=== PATIENT | male | born 1935 | race Caucasian/White ===

== ENCOUNTER 2020-11-06 12:50 | Emergency (ER) | payer OTHER ==
--- OUTSIDE RECORDS SUMMARY | 2020-11-06 12:55 | XMS REPORT | Continuity of Care Document ---
:1935 Author Organization [facility] t Address [address] [place] [address] Care Team Providers Name Role Phone Doctor Unassigned, [place] Attending Clinician Unavailable Mario MILLER, S Attending Clinician Pipe STYLES, S Attending Clinician Anthony RITTER Attending Clinician Unavailable Mati Quintero Attending Clinician Jesús STYLES Attending Clinician Aaron STYLES Attending Clinician Rangel Pendleton Attending Clinician Julita RN, A Attending Clinician Unavailable Kristin Pat Attending Clinician Isidro STYLES Attending Clinician Robert STYLES Attending Clinician Marlena MILLER S Attending Clinician Aaron STYLES Admitting Clinician Isidro STYLES Admitting Clinician Payers Payer Name Policy Type Policy Number Effective Date Expiration Date S ource Problems Condition Condition Condition Status Onset Resolution Last Treating Co mments Source Name Details Category Date Date Treatment Clinician Date 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 Cardiac Aime n (finding) pacemaker in situ (finding) Active Problem 06/01/2020 [facility] Hypertensi Problem Active 2020-06-01 M emoria ve 22:42:31 l disorder, Rajinder systemic Hypertensi arterial ve (disorder) disorder, systemic arterial (disorder) Active Problem 06/01/2020 [facility] Hyperlipid Problem Active 2020-06-01 M emoria emia 22:42:31 l (disorder) Aime n Hyperlipid emia (disorder) Active Problem 06/01/2020 [facility] Impaired Problem Active 2020-06-01 Mem oria cognition 22:42:31 l (finding) Impaired Her desai cognition (finding) Active Problem 06/01/2020 [facility] Simple Problem Active 2020-06-01 Memor ia obesity 22:42:31 l (disorder) Simple Herm susan obesity (disorder) Active Problem 06/01/2020 [facility] Allergies, Adverse Reactions, Alerts Allergy Allergy Status Severity Reaction(s) Onset Inactive Treating Comm ents Source Name Type Date Date Clinician No Known DA Active [facility] Allergie 2-17 Clear s 00:00: Rosario 00 [facility] Social History Social Habit Start Date Stop Date Quantity Comments Source Social History 2020-02-16 2020-02-16 [facility] 19:50:56 19:50:56 Medications Ordered Filled Start Stop Current Ordering Indication Dosage Frequency Signature Comments Components Source Medication Medication Date Date Medication? 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, Weight 24 HR Yes 500 mg = 1 Memori a Divalproex 9-25 tab, PO, l Sodium 500 19:26: Bedtime, 0 H ermann MG Extended 00 Refill(s) Release Tablet simvastatin 0 Yes 40 mg = 1 M emoria 40 mg oral 9-25 tab, PO, l tablet 19:26: Bedtime, 0 Dena nn 00 Refill(s) Furosemide Yes 20 mg = 1 Me moria 20 MG Oral 9-25 tab, PO, l Tablet 19:26: Daily, 0 Rajinder 00 Refill(s) lisinopril Yes 10 mg = 1 Me moria 10 mg oral 9-25 tab, PO, l tablet 19:26: Daily, 0 Rajinder 00 Refill(s) tamsulosin Yes 0.4 mg = 1 M emoria 0.4 mg oral 9-25 cap, PO, l capsule 19:26: Daily, 0 Aime n 00 Refill(s) DULoxetine Yes 60 mg = 1 Me moria 60 mg oral 9-25 cap, PO, l delayed 19:26: Daily, 0 Aime n release 00 Refill(s) capsule Vital Signs Vital Name Observation Time Observation Value Comments Source Systolic (mm Hg) 2020-03-28 19:56:00 Marcin rial [place] Diastolic (mm Hg) 2020-03-28 19:56:00 [facility] [place] Heart Rate 2020-03-28 19:56:00 [facility] 2020-03-28 19:56:00 [facility] Rajinder Height 2020-03-28 19:56:00 170.18 cm [facility] Weight 2020-03-28 19:56:00 [facility] BMI Calculated 2020-03-28 19:56:00 Memori al Rajinder Systolic (mm Hg) 2020-02-16 19:06:00 Marcin rial [place] Diastolic (mm Hg) 2020-02-16 19:06:00 [facility] [place] Heart Rate 2020-02-16 19:06:00 [facility] Rate 2020-02-16 19:06:00 [facility] Rajinder Height 2020-02-16 19:06:00 172.72 cm [facility] Weight 2020-02-16 19:06:00 [facility] BMI Calculated 2020-02-16 19:06:00 [place] Procedures Procedure Date / Time Performed Performing Clinician [facility] e Pacemaker care [facility] Encounters Start End Encounter Admission Attending Care Care Encounter Source Date/Time Date/Time Type Type Clinicians Facility Department ID 2020-10-15 2020-10-15 Orders Doctor CALEB [id number] [id number] 00:00:00 00:00:00 Only Unassigned, SOCO 350.1.13.10 [place] [facility] 4.2.7.2.686 [id number] 2020-10-01 2020-10-01 Emergency Martin, [facility] [id number] 13:31:00 15:55:00 Mouna Rodas 350.1.13.10 [place] 4.2.7.2.686 [place] [id number] 2020-09-30 2020-09-30 Emergency [facility], [facility] [id number] 20:51:00 23:20:00 Vidal Rodas 350.1.13.10 [place] 4.2.7.2.686 [place] [id number] 2020-09-30 2020-09-30 Orders Doctor CALEB 1.2.840.114 [id number] 00:00:00 00:00:00 Only Unassigned, SOCO 350.1.13.10 [place] [facility] 4.2.7.2.686 [id number] 2020-08-15 2020-08-15 Transition Romulo Cruz 1.2.840.114 [id number] 00:00:00 00:00:00 of Care Vicenta Doyle 350.1.13.10 [place] 4.2.7.2.686 [id number] 2020-08-12 2020-08-14 [facility] Siddiqui [facility] 1.2.8 40.114 [id number] 16:32:00 17:15:00 Encounter Billy Espinosa 350.1.13.10 Ernie Walker [place] 4.2.7.2.686 [place] [id number] 082020-07-26 2020-07-26 Emergency Martin, [facility] 1.2.699.535 [id number] 16:25:00 21:46:00 Mouna Jc Adrianna 350.1.13.10 [place] 4.2.7.2.686 [place] [id number] 2020-06-30 2020-07-01 Emergency [facility], [facility] [id number] 19:32:00 00:53:00 Vidal Jc Adrianna 350.1.13.10 [place] 4.2.7.2.686 [place] [id number] 2020-05-30 2020-05-30 Outpatient SEVERO Pendleton [id number] 13:00:00 13:00:00 Obdulio 02 Rangel 2020-05-28 2020-05-28 Transition Romulo Cancino 1.2.840.114 [id number] 00:00:00 00:00:00 of Care Brien Kwon 350.1.13.10 [place] 4.2.7.2.68[facility] [id number] 2020-05-24 2020-05-25 Emergency Fatou Alma Foster [facility] 1.2.840. 114 [id number] 14:43:00 15:00:00 Balbina Felix 350.1.13.10 [place] 4.2.7.2.686 [place] [id number] 2020-03-28 2020-03-28 Outpatient SEVERO Pendleton [id number] 13:15:00 23:59:59 Obdulio Rangel 2020-02-24 2020-02-24 [email or web address] 1.2.629.820 [id number] 13:34:00 15:14:00 Dawson Rodas 350.1.13.10 [place] 4.2.7.2.686 [place] [id number] [facility] 2020-02-16 2020-02-16 Outpatient SEVERO Pendleton [id number] 14:00:00 23:59:59 Obdulio 00 Rangel 2019-08-15 2019-08-15 Orders Doctor CALEB 1.2.840.114 [id number] 00:00:00 00:00:00 Only Unassigned, SOCO 350.1.13.10 [place] [facility] 4.2.7.2.686 [id number] 2019-07-06 2019-07-06 Office CRISTINA Mendiola 1.2.840.114 [id number] 10:04:57 10:19:57 Visit [facility] 350.1.13.10 Surgical 4.2.7.2.686 Specialti [id number] [place] Results Test Description Test Time Test Comments Results Result Comments Source BASIC METABOLIC PANEL 2020-07-14 06:29:00 Test Item Value Reference Range Interpretation Comme nts SODIUM (test code = NA) 141 mmol/L 134-147 N POTASSIUM (test code = K) 3.8 mmol/L 3.4-5.0 N CHLORIDE (test code = CL) 107 mmol/L 100-108 N CARBON DIOXIDE (test code = CO2) 29 mmol/L 21-32 N ANION GAP (test code = GAP) 5.0 GAP calc 4.0-15.0 N GLUCOSE (test code = GLU) 81 MG/DL 70-110 N BLOOD UREA NITROGEN (test code = BUN) 25 MG/DL 7-18 H GLOMERULAR FILTRATION RATE (test code = GFR) >=60 max estimate estG FR >60 CREATININE (test code = CREAT) 0.8 MG/DL 0.8-1.3 N CALCIUM (test code = CA) 8.4 MG/DL 8.5-10.1 L CBC W/AUTO [id number] 06:19:00 Test Item Value Reference Range Interpretation Comments WHITE BLOOD CELL (test code = 6.9 K/mm3 3.5-11.0 N WBC) RED BLOOD CELL (test code = 3.15 M/mm3 4.70-6.10 L RBC) HEMOGLOBIN (test code = HGB) 9.8 G/DL 12.3-15.9 L HEMATOCRIT (test code = HCT) 29.8 % 35.8-46.7 L MEAN CELL VOLUME (test code = 94.6 Fl 86.3-98.9 N MCV) MEAN CELL HGB (test code = MCH) 31.1 pg 28.9-34.4 N MEAN CELL HGB CONCETRATION 32.9 G/DL 32.1-34.5 N (test code = MCHC) RED CELL DISTRIBUTION WIDTH 14.1 SD 11.5-14.5 N (test code = RDW) PLATELET COUNT (test code = 220 K/mm3 150-450 N PLT) MEAN PLATELET VOLUME (test code 11.40 fL 7.0-9.6 H = MPV) NEUTROPHIL % (test code = NT%) 44.9 % 40-76 N IMMATURE GRANULOCYTE % (test 1.6 % 0.0-5.0 N code = IG%) LYMPHOCYTE % (test code = LY%) 38.8 % 20.5-51.1 N MONOCYTE % (test code = MO%) 11.9 % 1.7-9.3 H EOSINOPHIL % (test code = EO%) 2.2 % 0.0-6.0 N BASOPHIL % (test code = BA%) 0.6 % 0.0-2.0 N NUCLEATED RBC % (test code = 0.0 /100WBC% 0.0-1.0 N NRBC%) NEUTROPHIL # (test code = NT#) 3.1 K/mm3 1.8-7.6 N IMMATURE GRANULOCYTE # (test 0.11 x10 3/uL 0.00-0.03 H code = IG#) LYMPHOCYTE # (test code = LY#) 2.7 K/mm3 0.6-3.0 N MONOCYTE # (test code = MO#) 0.8 K/mm3 0.2-1.5 N EOSINOPHIL # (test code = EO#) 0.2 K/mm3 0.0-0.4 N BASOPHIL # (test code = BA#) 0.0 K/mm3 0.0-0.2 N NUCLEATED RBC # (test code = 0.0 K/mm3 0.00-0.01 N NRBC#) MANUAL DIFF REQUIRED (test code NO DIFF/SCN CRITERIA = MDIFF) BASIC METABOLIC [id number] 06:12:00 Test Item Value Reference Range Interpretation Comments SODIUM (test code = NA) 140 mmol/L 134-147 N POTASSIUM (test code = 3.5 mmol/L 3.4-5.0 N K) CHLORIDE (test code = 107 mmol/L 100-108 N CL) CARBON DIOXIDE (test 27 mmol/L 21-32 N code = CO2) ANION GAP (test code = 6.0 GAP calc 4.0-15.0 N GAP) GLUCOSE (test code = 79 MG/DL 70-110 N GLU) BLOOD UREA NITROGEN 30 MG/DL 7-18 H (test code = BUN) GLOMERULAR FILTRATION >=60 max estimate >60 RATE (test code = GFR) estGFR CREATININE (test code = 0.9 MG/DL 0.8-1.3 N CREAT) CALCIUM (test code = CA) 8.5 MG/DL 8.5-10.1 N CBC W/AUTO [id number] 05:58:00 Test Item Value Reference Range Interpretation Comments WHITE BLOOD CELL (test code = 8.3 K/mm3 3.5-11.0 N WBC) RED BLOOD CELL (test code = 3.05 M/mm3 4.70-6.10 L RBC) HEMOGLOBIN (test code = HGB) 9.4 G/DL 12.3-15.9 L HEMATOCRIT (test code = HCT) 28.9 % 35.8-46.7 L MEAN CELL VOLUME (test code = 94.8 Fl 86.3-98.9 N MCV) MEAN CELL HGB (test code = MCH) 30.8 pg 28.9-34.4 N MEAN CELL HGB CONCETRATION 32.5 G/DL 32.1-34.5 N (test code = MCHC) RED CELL DISTRIBUTION WIDTH 14.2 SD 11.5-14.5 N (test code = RDW) PLATELET COUNT (test code = 210 K/mm3 150-450 N PLT) MEAN PLATELET VOLUME (test code 11.40 fL 7.0-9.6 H = MPV) NEUTROPHIL % (test code = NT%) 46.7 % 40-76 IMMATURE GRANULOCYTE % (test 1.7 % 0.0-5.0 N code = IG%) LYMPHOCYTE % (test code = LY%) 36.3 % 20.5-51.1 N MONOCYTE % (test code = MO%) 12.8 % 1.7-9.3 H EOSINOPHIL % (test code = EO%) 1.8 % 0.0-6.0 N BASOPHIL % (test code = BA%) 0.7 % 0.0-2.0 N NUCLEATED RBC % (test code = 0.0 /100WBC% 0.0-1.0 N NRBC%) NEUTROPHIL # (test code = NT#) 3.9 K/mm3 1.8-7.6 N IMMATURE GRANULOCYTE # (test 0.14 x10 3/uL 0.00-0.03 H code = IG#) LYMPHOCYTE # (test code = LY#) 3.0 K/mm3 0.6-3.0 N MONOCYTE # (test code = MO#) 1.1 K/mm3 0.2-1.5 N EOSINOPHIL # (test code = EO#) 0.2 K/mm3 0.0-0.4 N BASOPHIL # (test code = BA#) 0.1 K/mm3 0.0-0.2 N NUCLEATED RBC # (test code = 0.0 K/mm3 0.00-0.01 N NRBC#) MANUAL DIFF REQUIRED (test code NO DIFF/SCN CRITERIA = MDIFF) ARTERIAL BLOOD [id number] 17:25:00 Test Item Value Reference Range Interpretation Comments ARTERIAL BLOOD GAS PH 7.42 pH units 7.35-7.45 N (test code = PHA) ARTERIAL BLOOD GAS PCO2 37 mmHg 35-45 N (test code = PCO2A) ARTERIAL BLOOD GAS PO2 73 mmHg 80-100 L (test code = PO2A) BICARBONATE TOTAL HCO3 23.7 mmol/L 22.0-26.0 N (test code = HCO3) BASE EXCESS (test code = -0.5 mmol/L -3.0-3.0 N ARNULFO) ABG O2 SATURATION (test 95 % 90-100 N code = SATA) FIO2 (test code = FIO2A) 21 % (calc) 21-100 N ABG VENT MODE (test code Room Air Descript Vent Mode = MODEA) ABG SITE (test code = Right Radial ARTKIT DESCRIPTION SITEA) MODIFIED RADHA'S (test Yes Circ.CHK POSITIVE code = MODALL) PaO2/[id number] 17:25:00 Test Item Value Reference Range Interpretation Comments PaO2/FiO2 (test code mm/Hg See_Comment [Autom ated message] The = [id number]) system which ge nerated this result transmit lora reference range : 200. The reference range was not used to interpr et this result as dat l/abnormal. ARTERIAL BLOOD [id number] 17:25:00 Test Item Value Reference Range Interpretation Comments ARTERIAL BLOOD GAS PH 7.42 pH units 7.35-7.45 N (test code = PHA) ARTERIAL BLOOD GAS PCO2 37 mmHg 35-45 N (test code = PCO2A) ARTERIAL BLOOD GAS PO2 73 mmHg 80-100 L (test code = PO2A) BICARBONATE TOTAL HCO3 23.7 mmol/L 22.0-26.0 N (test code = HCO3) BASE EXCESS (test code = -0.5 mmol/L -3.0-3.0 N ARNULFO) ABG O2 SATURATION (test 95 % 90-100 N code = SATA) FIO2 (test code = FIO2A) 21 % (calc) 21-100 N ABG VENT MODE (test code Room Air Descript Vent Mode = MODEA) ABG SITE (test code = Right Radial ARTKIT DESCRIPTION SITEA) MODIFIED RADHA'S (test Yes Circ.CHK POSITIVE code = MODALL) PaO2/[id number] 17:25:00 Test Item Value Reference Range Interpretation Comments PaO2/FiO2 (test 347.6 mm/Hg See_Comment [Automated message] The code = [id number]) system [employer] generated this result tra nsmitted reference range : 200. The reference r mario was not used to int erpret this result as normal/abnormal . VALPROIC ACID (DEPAKENE)2020-07-11 16:21:00 Test Item Value Reference Range Interpretation Comments VALPROIC ACID (DEPAKENE) (test 45.0 mcG/ML 50.0-100.0 L code = VALP) CBC W/AUTO [id number] 06:37:00 Test Item Value Reference Range Interpretation Comments WHITE BLOOD CELL (test code = 8.2 K/mm3 3.5-11.0 N WBC) RED BLOOD CELL (test code = 3.11 M/mm3 4.70-6.10 L RBC) HEMOGLOBIN (test code = HGB) 9.7 G/DL 12.3-15.9 L HEMATOCRIT (test code = HCT) 29.7 % 35.8-46.7 L MEAN CELL VOLUME (test code = 95.5 Fl 86.3-98.9 N MCV) MEAN CELL HGB (test code = MCH) 31.2 pg 28.9-34.4 N MEAN CELL HGB CONCETRATION 32.7 G/DL 32.1-34.5 N (test code = MCHC) RED CELL DISTRIBUTION WIDTH 14.2 SD 11.5-14.5 N (test code = RDW) PLATELET COUNT (test code = 185 K/mm3 150-450 N PLT) MEAN PLATELET VOLUME (test code 11.60 fL 7.0-9.6 H = MPV) NEUTROPHIL % (test code = NT%) 59.2 % 40-76 N IMMATURE GRANULOCYTE % (test 1.8 % 0.0-5.0 N code = IG%) LYMPHOCYTE % (test code = LY%) 23.2 % 20.5-51.1 N MONOCYTE % (test code = MO%) 13.7 % 1.7-9.3 H EOSINOPHIL % (test code = EO%) 1.5 % 0.0-6.0 N BASOPHIL % (test code = BA%) 0.6 % 0.0-2.0 N NUCLEATED RBC % (test code = 0.0 /100WBC% 0.0-1.0 N NRBC%) NEUTROPHIL # (test code = NT#) 4.8 K/mm3 1.8-7.6 N IMMATURE GRANULOCYTE # (test 0.15 x10 3/uL 0.00-0.03 H code = IG#) LYMPHOCYTE # (test code = LY#) 1.9 K/mm3 0.6-3.0 N MONOCYTE # (test code = MO#) 1.1 K/mm3 0.2-1.5 N EOSINOPHIL # (test code = EO#) 0.1 K/mm3 0.0-0.4 N BASOPHIL # (test code = BA#) 0.1 K/mm3 0.0-0.2 N NUCLEATED RBC # (test code = 0.0 K/mm3 0.00-0.01 N NRBC#) MANUAL DIFF REQUIRED (test code NO DIFF/SCN CRITERIA = MDIFF) LACTIC [id number] 17:25:00 Test Item Value Reference Range Interpretation Comments LACTIC ACID (test code = LACT) 1.1 mmol/L 0.4-2.0 N COVID 19 INHOUSE [id number] 17:20:00 Test Item Value Reference Range Interpretation Comments COVID 19 INHOUSE AG NEGATIVE Negative Per manu facturer, (test code = negative result s should [id number]) be treated aspr esumptive and, if inconsi stent with clinical signs andsymptoms or necessary for patient man agement, should betested with an alternative mol ecular assay. Negative resultsdo not preclude SA RS-CoV-2 infection and s hould not be usedas the s ole basis for patient man agement decisions. Neg ative results should be considered in t he context of apatient's r ecent exposures, hist ory, presence of cli nicalsigns and symptoms co nsistent with COVID-19. - CT HEAD/BRAIN W/O [id number] 16:12:00 [facility] 1935 Sex: M Name: SHRUTHI MERINO [facility] : 1935 Age/S: 84 / M [id number] Unit #: [id number] Loc: [place] [address] Phys: Chadd Mendoza MD Acct: [id number] Dis Date: Status: REG ER PHONE #: [phone] Exam Date: 07/10/2020 9235 FAX #: Reason: ams EXAMS: CPT: [id number] CT HEAD/BRAIN W/O CONT 20188 Location: R16 EXAM: CT BRAIN WITHOUT CONTRAST INDICATION: Altered mental status COMPARISON: None. TECHNIQUE: Routine axial CT images of the brain were obtained. Reformatted images in the sagittal and coronal plane were included. This exam was performed according to our departmental dose-optimization program, which includes automated exposure control, adjustment of the mA and/or kV according to patient size and/or use of iterative reconstruction technique IV contrast: None. DLP: 804 mGy-cm FINDINGS: Non-contrast images of the head demonstrate no edema, hemorrhage, mass lesion or other acute intracranial abnormality. There is mild, chronic diffuse parenchymal volume loss, which may be age-appropriate. There are periventricular and deep white matter hypodensities. These are nonspecific, but statistically, these aremost likely service representative of sequelae of chronic microvascular disease. No acute bony abnormality of the calvarium or skull base. Imaged portions of the paranasal sinuses and mastoid air cells are clear. IMPRESSION: No CT evidence of acute intracranial abnormality. If there is clinical concern for acute symptomatology, consider further evaluation with an MRI examination of the brain. Chronic findings, including mild diffuse parenchymal volume loss and sequelae of chronic microvascular disease. PAGE 1 Signed Report (CONTINUED) Name: SHRUTHI MERINO [facility] Michael : 1935 Age/S: 84 / M [id number] Unit #: [id number] Loc: [place] [address] Phys: Chadd Mendoza MD Acct: [id number] Dis Date: Status: REG ER PHONE #: [phone] Exam Date: 07/10/2020 8790 FAX #: Reason: ams EXAMS: CPT: [id number] CT HEAD/BRAIN W/O CONT [id number] <Continued> El ectronically Signed by Gt Burr on 07/10/2020 at 1612 Reported and signed by: Juan Burr M.D. CC: Chadd Mendoza MD Technologist:RT Sarah(R)(CT); Lu Barroso CTDI: DLP: Trnscb Date/Time: 07/10/2020 (1611) [email or web address] Orig Print D/T: S: 07/10/2020 (1616) PAGE 2 Signed ReportCBC W/AUTO [id number] 16:06:00 Test Item Value Reference Range Interpretation Comments WHITE BLOOD CELL 12.6 K/mm3 3.5-11.0 H (test code = WBC) RED BLOOD CELL (test 3.55 M/mm3 4.70-6.10 L code = RBC) HEMOGLOBIN (test code 10.9 G/DL 12.3-15.9 L = HGB) HEMATOCRIT (test code 33.5 % 35.8-46.7 L = HCT) MEAN CELL VOLUME 94.4 Fl 86.3-98.9 N (test code = MCV) MEAN CELL HGB (test 30.7 pg 28.9-34.4 N code = MCH) MEAN CELL HGB 32.5 G/DL 32.1-34.5 N CONCETRATION (test code = MCHC) RED CELL DISTRIBUTION 14.2 SD 11.5-14.5 N WIDTH (test code = RDW) PLATELET COUNT (test 250 K/mm3 150-450 N code = PLT) MEAN PLATELET VOLUME 11.50 fL 7.0-9.6 H (test code = MPV) NEUTROPHIL % (test 62.1 % 40-76 N code = NT%) IMMATURE GRANULOCYTE 3.0 % 0.0-5.0 N % (test code = IG%) LYMPHOCYTE % (test 20.6 % 20.5-51.1 N code = LY%) MONOCYTE % (test code 13.5 % 1.7-9.3 H = MO%) EOSINOPHIL % (test 0.2 % 0.0-6.0 N code = EO%) BASOPHIL % (test code 0.6 % 0.0-2.0 N = BA%) NUCLEATED RBC % (test 0.0 /100WBC% 0.0-1.0 N code = NRBC%) NEUTROPHIL # (test 7.8 K/mm3 1.8-7.6 H code = NT#) IMMATURE GRANULOCYTE 0.38 x10 3/uL 0.00-0.03 H # (test code = IG#) LYMPHOCYTE # (test 2.6 K/mm3 0.6-3.0 N code = LY#) MONOCYTE # (test code 1.7 K/mm3 0.2-1.5 H = MO#) EOSINOPHIL # (test 0.0 K/mm3 0.0-0.4 N code = EO#) BASOPHIL # (test code 0.1 K/mm3 0.0-0.2 N = BA#) NUCLEATED RBC # (test 0.0 K/mm3 0.00-0.01 N code = NRBC#) MANUAL DIFF REQUIRED NO DIFF/SCN CRITERIA SLIDE R GRAYW (test code = MDIFF) CONSISTA NT WITH AUTO DIFFERENTI AL. - XR CHEST 1 [id number] 15:38:00 [facility] 1935 Sex: M Name: SHRUTHI MERINO [facility] : 1935 Age/S: 84 / M [address] Unit #: [id number] Loc: [place] [address] Phys: Chadd Mendoza MD Acct: [id number] Dis Date: Status: REG ER PHONE #: [phone] Exam Date: 07/10/20201522 FAX #: Reason: Code Sepsis EXAMS: CPT: [id number] XR CHEST 1 V 56266 Fluoro Time: DAP (Gy m2): Air Kerma (mGy): - XR CHEST 1 V INDICATION:Code sepsis LOCATION: T18 The lungs are clear. The cardiomediastinal silhouette is within normal limits. There are pacemaker leads right atrium and right ventricle. Old left rib fracture. IMPRESSION: No active disease. at 1538 Reported and signed by: Caleb Bennett M.D. CC: Chadd Mendoza MD PAGE 1 Signed Report [facility] 1935 Age/S: 84 / M [address] Unit #: [id number] Loc: [place] [address] Phys: Chadd Mendoza MD Acct: [id number] Dis Date: Status: REG ER PHONE #: [phone] Exam Date: 07/10/20201522 FAX #: Reason: Code Sepsis EXAMS: CPT: [id number] XR CHEST 1 V [id number] Fluoro Time: DAP (Gy m2): Air Kerma (mGy): <Continued> Technologist: RT Kerline(R)(CT) Trnscb Date/Time: 07/10/2020 (1538) Demar Orig Print D/T: S: 07/10/2020 (2339) PAGE 2 Signed ReportUA RFLX MICR CULT IF INDICATED 2020-07-10 15:07:00 Test Item Value Reference Range Interpretation Comments UA COLOR (test code = YELLOW discript YEL/STRAW COLU) UA APPEARANCE (test code CLEAR discript CLEAR = APPU) UA GLUCOSE DIPSTICK (test NEGATIVE mg/dL NEG code = DGLUU) UA BILIRUBIN DIPSTICK 2+ mg/dL NEG A (test code = BILU) UA KETONE DIPSTICK (test 1+ mg/dL NEG code = KETU) UA SPECIFIC GRAVITY (test >=1.030 SG 1.005-1.030 A code = SGU) UA BLOOD DIPSTICK (test TRACE mg/DL NEG code = ASHOK) UA PH DIPSTICK (test code <=5.0 pH UNITS 5.0-7.0 = VALERIE) UA PROTEIN DIPSTICK (test 2+ mg/dL NEG A code = PROU) UA UROBILINIOGEN DIPSTICK 2.0 mg/dL <2.0 A (test code = URO) UA NITRITE DIPSTICK (test NEGATIVE SCREEN NEG code = CONSTANTIN) UA LEUKOCYTE ESTERASE 1+ Leuk/mcL NEGATIVE A DIPSTICK (test code = LEUU) UA WBC (test code = WBCU) 3-5 #WBC/HPF 0-3 A UA RBC (test code = RBCU) 5-10 #RBC/HPF 0-3 A UA BACTERIA (test code = TRACE /HPF NONE-TRACE BACU) UA SQUAMOUS CELLS (test TRACE /HPF NONE code = SQU) UA CULTURE NEEDED? (test NO, WBC<10 Criteria Culture CHK code = UACULT) Indication for culture: Dysuria/FrequencyUA RFLX MICR CULT IF INDICATED 2020-07-10 15:06:00 Test Item Value Reference Range Interpretation Comments UA COLOR (test code = COLU) YELLOW discript YEL/STRAW UA APPEARANCE (test code = CLEAR discript CLEAR APPU) UA GLUCOSE DIPSTICK (test NEGATIVE mg/dL NEG code = DGLUU) UA BILIRUBIN DIPSTICK (test 2+ mg/dL NEG A code = BILU) UA KETONE DIPSTICK (test code 1+ mg/dL NEG = KETU) UA SPECIFIC GRAVITY (test >=1.030 SG 1.005-1.030 A code = SGU) UA BLOOD DIPSTICK (test code TRACE mg/DL NEG = ASHOK) UA PH DIPSTICK (test code = <=5.0 pH UNITS 5.0-7.0 VALERIE) UA PROTEIN DIPSTICK (test 2+ mg/dL NEG A code = PROU) UA UROBILINIOGEN DIPSTICK 2.0 mg/dL <2.0 A (test code = URO) UA NITRITE DIPSTICK (test NEGATIVE SCREEN NEG code = CONSTANTIN) UA LEUKOCYTE ESTERASE 1+ Leuk/mcL NEGATIVE A DIPSTICK (test code = LEUU) UA CULTURE NEEDED? (test code Criteria Culture CHK = UACULT) Indication for culture: Dysuria/FrequencyBASIC METABOLIC [id number] 14:48:00 Test Item Value Reference Range Interpretation Comments SODIUM (test code = NA) 139 mmol/L 134-147 N POTASSIUM (test code = K) 4.1 mmol/L 3.4-5.0 N CHLORIDE (test code = CL) 104 mmol/L 100-108 N CARBON DIOXIDE (test code = CO2) 29 mmol/L 21-32 N ANION GAP (test code = GAP) 6.0 GAP calc 4.0-15.0 N GLUCOSE (test code = GLU) 100 MG/DL 70-110 N BLOOD UREA NITROGEN (test code = 25 MG/DL 7-18 H BUN) GLOMERULAR FILTRATION RATE (test 24 estGFR >60 L code = GFR) CREATININE (test code = CREAT) 2.7 MG/DL 0.8-1.3 H CALCIUM (test code = CA) 8.4 MG/DL 8.5-10.1 L Completed by Nursing: NOHEPATIC FUNCTION [id number] 14:48:00 Test Item Value Reference Range Interpretation Comments TOTAL PROTEIN (test code = PROT) 5.2 G/DL 6.4-8.2 L ALBUMIN (test code = ALB) 2.8 G/DL 3.4-5.0 L BILIRUBIN TOTAL (test code = BILT) 0.50 MG/DL 0.2-1.2 N BILIRUBIN DIRECT (test code = 0.20 MG/DL 0.00-0.30 N BILD) BILIRUBIN INDIRECT (test code = 0.30 MG/DL 0.2-1.2 N BILIND) SGOT/AST (test code = AST) 20 Unit/L 15-37 N SGPT/ALT (test code = ALT) 15 Unit/L 12-78 N ALKALINE PHOSPHATASE TOTAL (test 58 Unit/L 50-136 N code = ALKP) Completed by Nursing: [id number] 14:48:00 Test Item Value Reference Range Interpretation Comments TROPONIN-I (test 0.208 NG/ML 0.000-0.045 HH Negative: < /= 0.045 code = TROPI) Positive: >/= 0.046 Correlation wit h serial results, other cardiac markers, and cl inical findings is nec essary to determine the c linical significance of this result. Quantit ative results using d ifferent methodologies s hould not be compared to one another as nume rical results may luciana yby method. Completed by Nursing: NOLACTIC [id number] 14:24:00 Test Item Value Reference Range Interpretation Comments LACTIC ACID (test code = LACT) 2.1 mmol/L 0.4-2.0 H CBC W/AUTO [id number] 14:19:00 Test Item Value Reference Range Interpretation Comments WHITE BLOOD CELL (test code = WBC) 12.6 K/mm3 3.5-11.0 H RED BLOOD CELL (test code = RBC) 3.55 M/mm3 4.70-6.10 L HEMOGLOBIN (test code = HGB) 10.9 G/DL 12.3-15.9 L HEMATOCRIT (test code = HCT) 33.5 % 35.8-46.7 L MEAN CELL VOLUME (test code = MCV) 94.4 Fl 86.3-98.9 N MEAN CELL HGB (test code = MCH) 30.7 pg 28.9-34.4 N MEAN CELL HGB CONCETRATION (test 32.5 G/DL 32.1-34.5 N code = MCHC) RED CELL DISTRIBUTION WIDTH (test SD 11.5-14.5 N code = RDW) PLATELET COUNT (test code = PLT) 250 K/mm3 150-450 N MEAN PLATELET VOLUME (test code = fL 7.0-9.6 H MPV) NEUTROPHIL % (test code = NT%) % 40-76 N IMMATURE GRANULOCYTE % (test code % 0.0-5.0 N = IG%) LYMPHOCYTE % (test code = LY%) % 20.5-51.1 N MONOCYTE % (test code = MO%) % 1.7-9.3 H EOSINOPHIL % (test code = EO%) % 0.0-6.0 N BASOPHIL % (test code = BA%) % 0.0-2.0 N NUCLEATED RBC % (test code = /100WBC% 0.0-1.0 N NRBC%) NEUTROPHIL # (test code = NT#) K/mm3 1.8-7.6 H IMMATURE GRANULOCYTE # (test code x10 3/uL 0.00-0.03 H = IG#) LYMPHOCYTE # (test code = LY#) K/mm3 0.6-3.0 N MONOCYTE # (test code = MO#) K/mm3 0.2-1.5 H EOSINOPHIL # (test code = EO#) K/mm3 0.0-0.4 N BASOPHIL # (test code = BA#) K/mm3 0.0-0.2 N NUCLEATED RBC # (test code = K/mm3 0.00-0.01 N NRBC#) MANUAL DIFF REQUIRED (test code = DIFF/SCN CRITERIA MDIFF)
[2020-11-06] MEDS ORDERED: NA CHLORIDE 0.9% 1,000 ML ONE (14:40)
--- NOTE | 2020-11-06 14:42 | RAD REPORT ---
EXAM DESCRIPTION: CT - Head Brain Wo Cont - 11/06/2020 2:28 pm CLINICAL HISTORY: near syncope Headache, drowsiness COMPARISON: Head Brain Wo Cont dated 02/29/2020 TECHNIQUE: All CT scans are performed using dose optimization technique as appropriate and may inclu de automated exposure control or mA/KV adjustment according to patient size. FINDINGS: No intracranial hemorrhage, hydrocephalus or extra-axial fluid collection.Mild periventric ular and deep white matter chronic microvascular ischemic changes.No areas of brain edema or evidence of midline shift. The paranasal sinuses and mastoids are clear. The calvarium is intact. IMPRESSION: No acute intracranial abnormality.
--- NOTE | 2020-11-06 15:15 | RAD REPORT ---
EXAM DESCRIPTION: RAD - Chest Single View - 11/06/2020 3:06 pm CLINICAL HISTORY: near syncope Chest pain. FINDINGS: Portable technique limits examination quality. The lungs are grossly clear. The heart is normal in size. Small left pleural effusion. No displaced f ractures.Dual lead pacer device is present. IMPRESSION: No acute intrathoracic process suspected.
[2020-11-06 15:33] LABS: Urine Blood Negative (Negative); Urine Glucose Negative (Negative); Urine Protein 1+ (Negative); Urine Specific Gravity 1.015 (1.005-1.030)
[2020-11-06 15:54] LABS: Absolute Lymphocytes (CBC) 2.3 K/uL (0.7-4.9); Basophils % 0.6 % (0-1.3); Hematocrit 33.5 % (39.6-49.0); Lymphocytes % 23.8 % (15.3-44.8); MPV 9.5 fL (7.6-11.3); RBC Red Blood Cell Count 3.59 M/uL (4.33-5.43)
[2020-11-06 15:57] LABS: Urine Bacteria <20 /HPF (NONE SEEN); Urine RBC <5 /HPF (NONE SEEN)
[2020-11-06 15:59] LABS: Protime INR 0.96
[2020-11-06 16:06] LABS: ALT/SGPT 11 U/L (12-78); AST/SGOT 10 U/L (15-37); Alkaline Phosphatase 83 U/L (45-117); BUN Blood Urea Nitrogen 11 mg/dL (7-18); Bicarbonate 29 mmol/L (21-32); Bilirubin Direct 0.1 mg/dL (0-0.2); Bilirubin Total 0.4 mg/dL (0.2-1.0); Glucose Level 90 mg/dL (74-106); Magnesium 2.4 mg/dL (1.8-2.4); NT PRO-BNP 782 pg/mL (<450); Potassium 4.2 mmol/L (3.5-5.1); Protein, Total 6.3 g/dL (6.4-8.2); Sodium Level 139 mmol/L (136-145); Troponin (Emerg Dept Use Only) < 0.02 ng/mL (0.0-0.045)
--- NOTE | 2020-11-06 17:06 | ER ---
Nurse's Notes [facility] Name: Ghulam Merino Age: 85 yrs Sex: Male : 1935 Arrival Date: 11/06/2020 Time: 12:53 Bed 20 Private MD: Nell Friend R Diagnosis: Orthostatic hypotension Presentation: 11/06 13:19 Chief complaint: Patient states: Was at his neurologist at around 1145 this morning, he ca1 felt like he was going to pass out and his SBP was at the 70s. The highest SBP they took was at 82. Feels dizzy with getting up and walking. Coronavirus screen: Client denies travel out of the [place] in the last 14 days. At this time, the client does not indicate any symptoms associated with coronavirus-19. Ebola Screen: Patient negative for fever greater than or equal to 101.5 degrees Fahrenheit, and additional compatible Ebola Virus Disease symptoms Patient denies exposure to infectious person. Patient denies travel to an Ebola-affected area in the 21 days before illness onset. No symptoms or risks identified at this time. Initial Sepsis Screen: Does the patient meet any 2 criteria? No. Patient's initial sepsis screen is negative. Does the patient have a suspected source of infection? No. Patient's initial sepsis screen is negative. Risk Assessment: Do you want to hurt yourself or someone else? Patient reports no desire to harm self or others. Onset of symptoms was November 06, 2020. 13:19 Method Of Arrival: Wheelchair ca1 13:19 Acuity: FEDERICO 2 ca1 Historical: - Allergies: 13:24 No Known Allergies; ca1 - PMHx: 13:24 High Cholesterol; Hypertension; Pacemaker; ca1 - PSHx: 13:24 HIP SX; Knee surgery; ca1 - Immunization history:: Client reports having NOT received the Covid vaccine. Pneumococcal vaccine is up to date, Flu vaccine is up to date. - Social history:: Smoking status: Patient/guardian denies using tobacco, the patient reports quitting approximately 50 years ago. Screenin:58 Abuse screen: Denies threats or abuse. Nutritional screening: No deficits noted. ap3 Tuberculosis screening: No symptoms or risk factors identified. Fall Risk No fall in past 12 months (0 pts). Secondary diagnosis (15 points) impaired mobility, No IV (0 pts). Ambulatory Aid- None/Bed Rest/Nurse Assist (0 pts). Gait- Normal/Bed Rest/Wheelchair (0 pts) Mental Status- Oriented to own ability (0 pts). Assessment: 13:56 General: Appears in no apparent distress. comfortable, Behavior is calm, cooperative, ap3 appropriate for age. Pain: Denies pain. Neuro: Level of Consciousness is awake, alert, obeys commands, Oriented to person, place, time, situation, Speech patients speech is at his baseline per patient and patients child at the bedside. Cardiovascular: Reports None Capillary refill < 3 seconds. Respiratory: Airway is patent Respiratory effort is even, unlabored, Respiratory pattern is regular, symmetrical. GI: No signs and/or symptoms were reported involving the gastrointestinal system. : No signs and/or symptoms were reported regarding the genitourinary system. EENT: No signs and/or symptoms were reported regarding the EENT system. 16:50 Reassessment: Patient and/or family updated on plan of care and expected duration. Pain ap3 level reassessed. Patient is alert, oriented x 3, equal unlabored respirations, skin warm/dry/pink. Vital Signs: 13:19 BP 92 / 63; Pulse 98; Resp 16 S; Temp 97.9(TE); Pulse Ox 100% on R/A; Weight 98.88 kg ca1 (R); Height 5 ft. 11 in. (180.34 cm) (R); Pain 0/10; 13:56 BP 117 / 62; Pulse 81; Resp 17; Pulse Ox 98% on R/A; Pain 0/10; ap3 14:54 BP 130 / 84; Pulse 68; Resp 17; Pulse Ox 98% on R/A; tw2 15:16 BP 124 / 65 Supine; Pulse 78; Resp 17; Pulse Ox 97% on R/A; Pain 0/10; ap3 15:16 BP 128 / 77 Sitting; Pulse 87; ap3 15:16 BP 108 / 66 Standing; Pulse 96; ap3 16:44 BP 146 / 68 LA (man/); Pulse 81; Resp 14; Pulse Ox 100% on R/A; Pain 0/10; ap3 13:19 Body Mass Index 30.40 (98.88 kg, 180.34 cm) ca1 ED Course: 12:53 Patient arrived in ED. as 12:53 Nell Friend MD is Private Physician. as 13:22 Triage completed. ca1 13:24 Arm band placed on right wrist. ca1 13:33 Livier Ochoa, RIYA is Primary Nurse. ap3 13:46 Bandar Quezada PA is PHCP. cp 13:46 Reza Morse MD is Attending Physician. cp 13:58 Patient has correct armband on for positive identification. Bed in low position. Side ap3 rails up X2. Adult w/ patient. damage cutter on. Pulse ox on. NIBP on. Door closed. Noise minimized. Warm blanket given. 14:27 CT Head Brain wo Cont In Process Unspecified. EDMS 15:06 XRAY Chest (1 view) In Process Unspecified. EDMS 15:15 Inserted saline lock: 20 gauge in right antecubital area, using aseptic technique. ap3 Blood collected. 15:49 Pt visited by son. ap3 17:07 No provider procedures requiring assistance completed. IV discontinued, intact, ap3 bleeding controlled, No redness/swelling at site. Pressure dressing applied. Administered Medications: 15:37 Drug: NS 0.9% 250 ml Route: IV; Rate: bolus; Site: right antecubital; ap3 17:07 Follow up: IV Status: Completed infusion; IV Intake: 1000ml ap3 Intake: 17:07 IV: 1000ml; Total: 1000ml. ap3 Outcome: 17:05 Discharge ordered by . cp 17:14 Discharged to home via wheelchair, with family. ap3 17:14 Condition: good 17:14 Discharge instructions given to patient, family, Instructed on discharge instructions, follow up and referral plans. Demonstrated understanding of instructions, follow-up care. 17:23 Patient left the ED. ap3 Signatures: Dispatcher [employer] [place] as Bandar Quezada PA PA cp Stephanie Dale RN RN tw2 Livier Ochoa, RIYA RN ap3 Ioana Jim RN RN ca1
--- NOTE | 2020-11-06 17:06 | EDPHYS ---
Physician Documentation [facility] Name: Ghulam Merino Age: 85 yrs Sex: Male : 1935 Arrival Date: 11/06/2020 Time: 12:53 Bed 20 Private MD: Nell Friend R ED Physician Reza Morse HPI: 11/06 14:00 This 85 yrs old Male presents to ER via Wheelchair with complaints of Near cp Syncope, Blood Pressure Problem. 14:00 The patient has experienced near-syncope, almost passed out. cp 14:00 Onset: The symptoms/episode began/occurred today. Duration: This was a single episode. cp Context: occurred doctor's office, occurred while the patient was walking, Just prior to the episode the patient experienced unknown symptoms. Associated injury: The patient did not suffer any apparent associated injury. Associated signs and symptoms: Pertinent positives: lightheadedness, Pertinent negatives: abdominal pain, chest pain, confusion, headache. Current symptoms: Currently, the patient is not experiencing any symptoms. 14:00 Patient reports he was sent to ED by physician's office after becoming lightheaded and cp almost passing out while walking into clinic today. Historical: - Allergies: 13:24 No Known Allergies; ca1 - PMHx: 13:24 High Cholesterol; Hypertension; Pacemaker; ca1 - PSHx: 13:24 HIP SX; Knee surgery; ca1 - Immunization history:: Client reports having NOT received the Covid vaccine. Pneumococcal vaccine is up to date, Flu vaccine is up to date. - Social history:: Smoking status: Patient/guardian denies using tobacco, the patient reports quitting approximately 50 years ago. ROS: 14:05 Neuro: Positive for near syncope, lightheaded, Negative for altered mental status, cp headache, numbness, syncope, weakness. 14:05 Cardiovascular: Negative for chest pain, edema, palpitations. cp Exam: 14:10 Constitutional: The patient appears in no acute distress, alert, awake, cp non-diaphoretic, non-toxic, well developed, well nourished. 14:10 Head/Face: Normocephalic, atraumatic. cp 14:10 Eyes: Periorbital structures: appear normal, Pupils: equal, round, and reactive to light and accomodation, Extraocular movements: intact throughout, Conjunctiva: normal, no exudate, no injection, Sclera: no appreciated abnormality, Lids and lashes: appear normal, bilaterally. 14:10 ENT: External ear(s): are unremarkable, Ear canal(s): are normal, TM's: dullness, bilaterally, Nose: is normal, Mouth: Lips: moist, Oral mucosa: moist, Posterior pharynx: Airway: no evidence of obstruction, patent. 14:10 Neck: ROM/movement: is normal, is supple, without pain, no range of motions limitations. 14:10 Chest/axilla: Inspection: normal, Palpation: is normal, no crepitus, no tenderness. 14:10 Cardiovascular: Rate: normal, Rhythm: regular, Edema: is not appreciated, JVD: is not appreciated. 14:10 Respiratory: the patient does not display signs of respiratory distress, Respirations: normal, no use of accessory muscles, no retractions, labored breathing, is not present, Breath sounds: are clear throughout, no decreased breath sounds, no stridor, no wheezing. 14:10 Abdomen/GI: Inspection: abdomen appears normal, Palpation: abdomen is soft and non-tender, in all quadrants. 14:10 Neuro: Orientation: to person, place \T\ time. Mentation: is normal, Cerebellar function: Romberg testing is negative, Motor: moves all fours, strength is normal, Sensation: is normal. 14:45 ECG was reviewed by the Attending Physician. cp Vital Signs: 13:19 BP 92 / 63; Pulse 98; Resp 16 S; Temp 97.9(TE); Pulse Ox 100% on R/A; Weight 98.88 kg ca1 (R); Height 5 ft. 11 in. (180.34 cm) (R); Pain 0/10; 13:56 BP 117 / 62; Pulse 81; Resp 17; Pulse Ox 98% on R/A; Pain 0/10; ap3 14:54 BP 130 / 84; Pulse 68; Resp 17; Pulse Ox 98% on R/A; tw2 15:16 BP 124 / 65 Supine; Pulse 78; Resp 17; Pulse Ox 97% on R/A; Pain 0/10; ap3 15:16 BP 128 / 77 Sitting; Pulse 87; ap3 15:16 BP 108 / 66 Standing; Pulse 96; ap3 16:44 BP 146 / 68 LA (man/); Pulse 81; Resp 14; Pulse Ox 100% on R/A; Pain 0/10; ap3 13:19 Body Mass Index 30.40 (98.88 kg, 180.34 cm) ca1 MDM: 13:51 Patient medically screened. cp 14:10 Differential Diagnosis: cardiac arrhythmia, drug effect, GI bleed, vasovagal episode. cp 17:05 Data reviewed: vital signs, nurses notes, lab test result(s), EKG, radiologic studies, cp CT scan, plain films. 17:05 Test interpretation: by ED physician or midlevel provider: ECG, plain radiologic cp studies. Counseling: I had a detailed discussion with the patient and/or guardian regarding: the historical points, exam findings, and any diagnostic results supporting the discharge/admit diagnosis, lab results, radiology results, the need for outpatient follow up, an freedom of information officer, to return to the emergency department if symptoms worsen or persist or if there are any questions or concerns that arise at home. Response to treatment: the patient's symptoms have markedly improved after treatment, and as a result, I will discharge patient. 11/06 14:04 Order name: Urine Microscopic Only; Complete Time: 16:48 11/06 14:04 Order name: Basic Metabolic Panel; Complete Time: 16:48 11/06 16:48 Interpretation: Normal except: GFR 79. 11/06 14:04 Order name: CBC with Diff; Complete Time: 16:48 11/06 16:49 Interpretation: Normal except: RBC 3.59; HGB 11.4; HCT 33.5; MCV 93.5. 11/06 14:04 Order name: LFT's; Complete Time: 16:48 11/06 16:50 Interpretation: Normal except: AST 10; ALT 11; TP 6.3; ALB 3.0; A/G 0.9. 11/06 14:04 Order name: Magnesium; Complete Time: 16:48 11/06 14:04 Order name: NT PRO-BNP; Complete Time: 16:48 11/06 13:47 Order name: Orthostatics; Complete Time: 15:15 11/06 14:04 Order name: PT-INR; Complete Time: 16:48 11/06 14:04 Order name: Troponin (emerg Dept Use Only); Complete Time: 16:48 11/06 14:04 Order name: XRAY Chest (1 view); Complete Time: 16:48 11/06 16:49 Interpretation: Report review. 11/06 14:04 Order name: EKG; Complete Time: 14:05 11/06 14:05 Order name: CT Head Brain wo Cont; Complete Time: 16:48 11/06 15:33 Order name: Urine Dipstick-Ancillary; Complete Time: 16:48 [facility] 11/06 14:04 Order name: Urine Dipstick-Ancillary (obtain specimen); Complete Time: 15:36 11/06 14:04 Order name: Cardiac monitoring; Complete Time: 14:06 11/06 14:04 Order name: EKG - Nurse/Tech; Complete Time: 14:43 11/06 14:04 Order name: IV Saline Lock; Complete Time: 15:36 11/06 14:04 Order name: Labs collected and sent; Complete Time: 15:36 11/06 14:04 Order name: O2 Per Protocol; Complete Time: 14:06 11/06 14:04 Order name: O2 Sat Monitoring; Complete Time: 14:06 EC:45 Rate is 73 beats/min. Rhythm is regular. HI interval is prolonged at 244 msec. QRS cp interval is prolonged at 166 msec. QT interval is normal. T waves are Inverted in lead aVL. Interpreted by me. Reviewed by me. Administered Medications: 15:37 Drug: NS 0.9% 250 ml Route: IV; Rate: bolus; Site: right antecubital; ap3 17:07 Follow up: IV Status: Completed infusion; IV Intake: 1000ml ap3 Disposition: 17:30 Chart complete. 17:33 Co-signature as Attending Physician, Reza Morse MD I agree with the assessment and kdr plan of care. Disposition: 11/06/20 17:05 Discharged to Home. Impression: Orthostatic hypotension. - Condition is Stable. - Discharge Instructions: Near-Syncope, Orthostatic Hypotension. - Medication Reconciliation Form, Thank You Letter, Antibiotic Education, Prescription Opioid Use form. - Follow up: Private Physician; When: 1 - 2 days; Reason: Recheck today's complaints. - Problem is new. - Symptoms have improved. Signatures: Dispatcher [employer] [facility] Reza Morse MD MD kdr Bandar Quezada PA PA cp Livier Ochoa RN RN ap3 Ioana Jim RN RN ca1 Corrections: (The following items were deleted from the chart) 17:06 17:05 11/06/2020 17:05 Discharged to Home. Impression: Dizziness and giddiness. cp Condition is Stable. Forms are Medication Reconciliation Form, Thank You Letter, Antibiotic Education, Prescription Opioid Use. Follow up: Private Physician; When: 1 - 2 days; Reason: Recheck today's complaints. Problem is new. Symptoms have improved. cp 17:23 17:06 11/06/2020 17:05 Discharged to Home. Impression: Orthostatic hypotension. ap3 Condition is Stable. Discharge Instructions: Dizziness, Near-Syncope, Orthostatic Hypotension. Forms are Medication Reconciliation Form, Thank You Letter, Antibiotic Education, Prescription Opioid Use. Follow up: Private Physician; When: 1 - 2 days; Reason: Recheck today's complaints. Problem is new. Symptoms have improved. cp
[2020-11-06 17:34] VITALS: TEMP 97.9
[2020-11-06 17:41] VITALS: BP 146/68; O2SAT 100
--- NOTE | 2020-11-07 08:19 | EKG ---
Test Date: 2020-11-06 Test Time: 14:41:29 [employer] Courier: ALP MEASUREMENT RESULTS: Intervals: Rate: 73 SC: 244 QRSD: 166 QT: 426 QTc: 469 [place]: P: 51 SC: 244 QRS: -76 T: 94 INTERPRETIVE STATEMENTS: Electronic ventricular pacemaker No previous ECG available for comparison Electronically Signed On 11-07-20 08:18:09 CDT by Talib Rea
== END 2020-11-06 17:23 | disposition home or self-care (01) ==
LOC: ER 12:50
DX: I95.1 Orthostatic hypotension (principal); I10 Essential (primary) hypertension; Z95.0 Presence of cardiac pacemaker
CPT/HCPCS: 96365; 93005; 85025; 80048; 36415; 83735; 85610; 80076; 84484; 83880; 70450; 71045; 99284; J7030; 81003; 81015